=== PATIENT | female | born 1985 | race Caucasian/White ===

== ENCOUNTER 2018-06-20 17:21 | Emergency (ER) | payer OTHER ==
--- NOTE | 2018-06-20 17:52 | EDM.PDOC ---
ED HPI GENERAL MEDICAL PROBLEM - General Chief Complaint: Upper Extremity Injury/Pain Stated Complaint: LEFT ARM PAIN Time Seen by Provider: 06/20/18 17:48 Source of Information: Reports: Patient History Limitations: Reports: No Limitations - History of Present Illness INITIAL COMMENTS - FREE TEXT/NARRATIVE: HISTORY AND PHYSICAL: History of present illness: Patient is a 32-year-old female here with complaint of left elbow pain. She states it has been bothering her for the past week. She denies injury or trauma , thought she slept on it wrong but it has not gotten better. She is taking OTC tylenol and motrin without relief. She states the pain is worse when she bends the elbow. She denies shoulder or wrist pain and no distal numbness or tingling. She denies chest pain, SOB, or jaw pain. Denies significant past medical history. Review of systems: As per history of present illness and below otherwise all systems reviewed and negative. Past medical history: As per history of present illness and as reviewed below otherwise noncontributory. Surgical history: As per history of present illness and as reviewed below otherwise noncontributory. Social history: No reported history of drug or alcohol abuse. Family history: As per history of present illness and as reviewed below otherwise noncontributory. Physical exam: General: Patient sitting comfortably in no acute distress and nontoxic appearing HEENT: Atraumatic, normocephalic, pupils reactive, negative for conjunctival pallor or scleral icterus, mucous membranes moist, throat clear, neck supple, nontender, trachea midline. No meningeal signs. Lungs: Clear to auscultation, breath sounds equal bilaterally, chest nontender. Heart: S1S2, regular, negative for clicks, rubs, or overt murmur. Abdomen: Soft, nondistended, nontender. Negative for masses or hepatosplenomegaly. Negative for costovertebral tenderness. No rigidity, rebound , guarding. Pelvis: Stable nontender. Genitourinary: Deferred. Rectal: Deferred. Extremities: No obvious swelling or deformity of the left elbow. No warmth or erythema and skin is intact. Pain to palpation of the medial and posterior aspect of the elbow. Atraumatic, negative for cords or calf pain. Neurovascular unremarkable. Neuro: Awake, alert, oriented. Cranial nerves II through XII unremarkable. Cerebellum unremarkable. Motor and sensory unremarkable throughout. Exam nonfocal. Notes: Diagnostics: x-ray left elbow Therapeutics: None Prescriptions: Diclofenac Impression: Left elbow tendinitis Plan: 1. Take medication as instructed 2. Follow up with primary care provider 3. Return to ED as needed as discussed Definitive disposition and diagnosis as appropriate pending reevaluation and review of above. 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 ED EXAM, GENERAL - Physical Exam Exam: See Below (see dictation) Course - Vital Signs Last Recorded V/S: Last Vital Signs Temp 97.6 F 06/20/18 17:28 Pulse 87 06/20/18 17:28 Resp 18 06/20/18 17:28 BP 124/82 06/20/18 17:28 Pulse Ox 97 06/20/18 17:28 - Orders/Labs/Meds Orders: Active Orders 24 hr Category Date Time Status Elbow Min 3V Lt [CR] Stat Exams 06/20/18 17:46 Taken Departure - Departure Time of Disposition: 19:01 Disposition: Home, Self-Care 01 Condition: Good Clinical Impression: Elbow tendinitis - Discharge Information Prescriptions: Diclofenac Sodium [Voltaren] 75 mg PO BIDMEALS #30 tab.cr Referrals: PCP,None [Primary Care Provider] - Forms: ED Department Discharge Additional Instructions: The following information is given to patients seen in the emergency department who are being discharged to home. This information is to outline your options for follow-up care. We provide all patients seen in our emergency department with a follow-up referral. The need for follow-up, as well as the timing and circumstances, are variable depending upon the specifics of your emergency department visit. If you don't have a primary care physician on staff, we will provide you with a referral. We always advise you to contact your personal physician following an emergency department visit to inform them of the circumstance of the visit and for follow-up with them and/or the need for any referrals to a consulting specialist. The emergency department will also refer you to a specialist when appropriate. This referral assures that you have the opportunity for follow-up care with a specialist. All of these measure are taken in an effort to provide you with optimal care, which includes your follow-up. Under all circumstances we always encourage you to contact your private physician who remains a resource for coordinating your care. When calling for follow-up care, please make the office aware that this follow-up is from your recent emergency room visit. If for any reason you are refused follow-up, please contact the [facility] Emergency Department at and asked to speak to the emergency department charge nurse. [facility] [address] [place] [address] [id number] [facility] [address] [place] [id number] 1. Take medication as instructed 2. Follow up with primary care provider 3. Return to ED as needed as discussed - My Orders Last 24 Hours: My Active Orders 06/20/18 17:46 Elbow Min 3V Lt [CR] Stat - Assessment/Plan Last 24 Hours: My Active Orders 06/20/18 17:46 Elbow Min 3V Lt [CR] Stat
--- NOTE | 2018-06-20 19:02 | CR ---
INDICATION: Pain x2 days. No injury. Pt states she just woke up with pain one morning TECHNIQUE: Left elbow 2 views. COMPARISON: None. FINDINGS: Bones: Alignment is normal. No fractures or bone lesions. Joint spaces: Unremarkable. Soft tissues: Unremarkable. IMPRESSION: Unremarkable left elbow. Dictated by: Chai Garcia MD @ 06/20/2018 19:00:58 (Electronically Signed)
[2018-06-20 19:16] VITALS: BP 115/71
== END 2018-06-20 19:16 | disposition home or self-care (01) ==
LOC: MW.ED 17:21
DX: M77.9 Enthesopathy, unspecified (principal); F17.210 Nicotine dependence, cigarettes, uncomplicated; Z91.018 Allergy to other foods
CPT/HCPCS: 73080-26-LT; 73080-LT; 99282; 99283-25

== ENCOUNTER 2019-05-16 12:55 | Emergency (ER) | payer OTHER ==
[2019-05-16] MEDS ORDERED: Sodium Chloride 0.9% 1,000 ML IV ONE (15:28)
[2019-05-16] MEDS ORDERED: Ondansetron 4 MG/2 ML SDV IVPUSH ONE (15:29)
[2019-05-16] MEDS ORDERED: Ketorolac 30 MG/ML SDV IVPUSH ONE (15:29)
--- NOTE | 2019-05-16 15:42 | EDM.PDOC ---
ED HPI GENERAL MEDICAL PROBLEM - General Chief Complaint: ENT Problem Stated Complaint: flu symptoms/fever Time Seen by Provider: 05/16/19 14:54 Source of Information: Reports: Patient History Limitations: Reports: No Limitations - History of Present Illness INITIAL COMMENTS - FREE TEXT/NARRATIVE: HISTORY AND PHYSICAL: History of present illness: Patient is a 33-year-old female who presents to the ED today with concern of fever, generalized body aches, cough, headache, sore throat, back pain since (3 days). Patient states that she does have a history of kidney infections and states that the back pain does feel similar to when she is had kidney infections in the past. Patient states that she is also been vomiting and has not been able to keep down any fluids today. Patient denies any other health history or any other symptoms or concerns. Patient denies chest pain, shortness of breath. Denies neck stiff ness, change in vision, syncope, or near syncope. Denies abdominal pain, diarrhea, constipation, or dysuria. Has not noted any blood in urine or stool. Review of systems: As per history of present illness and below otherwise all systems reviewed and negative. Past medical history: As per history of present illness and as reviewed below otherwise noncontributory. Surgical history: As per history of present illness and as reviewed below otherwise noncontributory. Social history: See social history for further information Family history: As per history of present illness and as reviewed below otherwise noncontributory. Physical exam: General: Patient is alert, oriented, and in no acute distress. Patient sitting comfortably on exam table. HEENT: Atraumatic, normocephalic, pupils equal and reactive bilaterally, negative for conjunctival pallor or scleral icterus, mucous membranes moist, TMs normal bilaterally, throat clear, neck supple, nontender, trachea midline. No drooling or trismus noted. No meningeal signs. No hot potato voice noted. Lungs: Clear to auscultation, breath sounds equal bilaterally, chest nontender. Heart: S1S2, regular rate and rhythm without overt murmur Abdomen: Soft, nondistended, nontender. Negative for masses or hepatosplenomegaly. Positive for costovertebral tenderness bilaterally. Pelvis: Stable nontender. Genitourinary: Deferred. Rectal: Deferred. Skin: Intact, warm, dry. No lesions or rashes noted. Extremities: Atraumatic, negative for cords or calf pain. Neurovascular unremarkable. Neuro: Awake, alert, oriented. Cranial nerves II through XII unremarkable. Cerebellum unremarkable. Motor and sensory unremarkable throughout. Exam nonfocal. Notes: Patient is out of the treatment window with Tamiflu. Patient has not had any episodes of vomiting in the ED and has been able to drink fluids without vomiting. Discussed the importance for follow-up with a primary care provider. Voices understanding and is agreeable to plan of care. Denies any further questions or concerns at this time. Diagnostics: Influenza, Strep, CBC, CMP, UA, urine hCG, chest x-ray Therapeutics: NS, Zofran, Toradol Prescription: Zofran Impression: Influenza A Plan: 1. Take medication as prescribed. You can alternate ibuprofen and Tylenol as directed for pain and discomfort. 2. Follow-up with the primary care provider as discussed. Return to the ED as needed and as discussed. Definitive disposition and diagnosis as appropriate pending reevaluation and review of above. Body Pain Score (Numeric/FACES): 7 - Related Data Allergies Allergy/AdvReac Type Severity Reaction Status Date / Time cake Allergy Swelling Uncoded 05/16/19 14:06 cr Allergy Swelling Uncoded 05/16/19 14:06 Home Meds: Home Meds . 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 ED EXAM, GENERAL - Physical Exam Exam: See Below (see dictation) Course - Vital Signs Last Recorded V/S: Last Vital Signs Temp 101.2 F H 05/16/19 14:07 Pulse 91 05/16/19 16:33 Resp 20 05/16/19 16:33 BP 111/87 05/16/19 14:07 Pulse Ox 95 05/16/19 16:33 - Orders/Labs/Meds Orders: Active Orders 24 hr Category Date Time Status EKG Documentation Completion [RC] STAT Care 05/16/19 15:28 Active CULTURE STREP A CONFIRMATION [RM] Stat Lab 05/16/19 14:11 Results STREP SCRN A RAPID W CULT CONF [RM] Stat Lab 05/16/19 14:11 Results Labs: Laboratory Tests 05/16/19 05/16/19 05/16/19 Range/Units 16:20 16:20 17:00 WBC 5.90 (4.0-11.0) K/uL RBC 4.86 (4.30-5.90) M/uL Hgb 14.1 (12.0-16.0) g/dL Hct 42.0 (36.0-46.0) % MCV 86.4 (80.0-98.0) fL MCH 29.0 (27.0-32.0) pg MCHC 33.6 (31.0-37.0) g/dL RDW Std Deviation 48.6 (28.0-62.0) fl RDW Coeff of Arlene 15 (11.0-15.0) % Plt Count 227 (150-400) K/uL MPV 9.70 (7.40-12.00) fL Neut % (Auto) 72.0 (48.0-80.0) % Lymph % (Auto) 15.8 L (16.0-40.0) % [place] % (Auto) 11.5 (0.0-15.0) % Eos % (Auto) 0.5 (0.0-7.0) % Baso % (Auto) 0.2 (0.0-1.5) % Neut # (Auto) 4.3 (1.4-5.7) K/uL Lymph # (Auto) 0.9 (0.6-2.4) K/uL [place] # (Auto) 0.7 (0.0-0.8) K/uL Eos # (Auto) 0.0 (0.0-0.7) K/uL Baso # (Auto) 0.0 (0.0-0.1) K/uL Nucleated RBC % 0.0 /100WBC Nucleated RBCs # 0 K/uL Sodium 140 (136-145) mmol/L Potassium 4.0 (3.5-5.1) mmol/L Chloride 103 (98-107) mmol/L Carbon Dioxide 26.0 (21.0-32.0) mmol/L BUN 10 (7.0-18.0) mg/dL Creatinine 0.9 (0.6-1.0) mg/dL Est Cr Clr Drug Dosing 99.37 mL/min Estimated GFR (MDRD) > 60.0 ml/min Glucose 98 (74-106) mg/dL Calcium 8.8 (8.5-10.1) mg/dL Total Bilirubin 0.4 (0.2-1.0) mg/dL AST 20 (15-37) IU/L ALT 26 (14-63) IU/L Alkaline Phosphatase 70 (46-116) U/L Total Protein 7.8 (6.4-8.2) g/dL Albumin 3.9 (3.4-5.0) g/dL Globulin 3.9 (2.6-4.0) g/dL Albumin/Globulin Ratio 1.0 (0.9-1.6) Lipase 89 (73-393) U/L Urine Color YELLOW Urine Appearance SLT CLOUDY Urine pH 6.5 (5.0-8.0) Ur Specific [place] 1.015 (1.001-1.035) Urine Protein NEGATIVE (NEGATIVE) mg/dL Urine Glucose (UA) NEGATIVE (NEGATIVE) mg/dL Urine Ketones TRACE H (NEGATIVE) mg/dL Urine Occult Blood NEGATIVE (NEGATIVE) Urine Nitrite NEGATIVE (NEGATIVE) Urine Bilirubin NEGATIVE (NEGATIVE) Urine Urobilinogen 0.2 (<2.0) EU/dL Ur Leukocyte Esterase NEGATIVE (NEGATIVE) Urine HCG, Qual (NEGATIVE) 05/16/19 Range/Units 17:00 WBC (4.0-11.0) K/uL RBC (4.30-5.90) M/uL Hgb (12.0-16.0) g/dL Hct (36.0-46.0) % MCV (80.0-98.0) fL MCH (27.0-32.0) pg MCHC (31.0-37.0) g/dL RDW Std Deviation (28.0-62.0) fl RDW Coeff of Arlene (11.0-15.0) % Plt Count (150-400) K/uL MPV (7.40-12.00) fL Neut % (Auto) (48.0-80.0) % Lymph % (Auto) (16.0-40.0) % [place] % (Auto) (0.0-15.0) % Eos % (Auto) (0.0-7.0) % Baso % (Auto) (0.0-1.5) % Neut # (Auto) (1.4-5.7) K/uL Lymph # (Auto) (0.6-2.4) K/uL [place] # (Auto) (0.0-0.8) K/uL Eos # (Auto) (0.0-0.7) K/uL Baso # (Auto) (0.0-0.1) K/uL Nucleated RBC % /100WBC Nucleated RBCs # K/uL Sodium (136-145) mmol/L Potassium (3.5-5.1) mmol/L Chloride (98-107) mmol/L Carbon Dioxide (21.0-32.0) mmol/L BUN (7.0-18.0) mg/dL Creatinine (0.6-1.0) mg/dL Est Cr Clr Drug Dosing mL/min Estimated GFR (MDRD) ml/min Glucose (74-106) mg/dL Calcium (8.5-10.1) mg/dL Total Bilirubin (0.2-1.0) mg/dL AST (15-37) IU/L ALT (14-63) IU/L Alkaline Phosphatase (46-116) U/L Total Protein (6.4-8.2) g/dL Albumin (3.4-5.0) g/dL Globulin (2.6-4.0) g/dL Albumin/Globulin Ratio (0.9-1.6) Lipase (73-393) U/L Urine Color Urine Appearance Urine pH (5.0-8.0) Ur Specific [place] (1.001-1.035) Urine Protein (NEGATIVE) mg/dL Urine Glucose (UA) (NEGATIVE) mg/dL Urine Ketones (NEGATIVE) mg/dL Urine Occult Blood (NEGATIVE) Urine Nitrite (NEGATIVE) Urine Bilirubin (NEGATIVE) Urine Urobilinogen (<2.0) EU/dL Ur Leukocyte Esterase (NEGATIVE) Urine HCG, Qual NEGATIVE (NEGATIVE) Meds: Medications Discontinued Medications Generic Name Dose Route Start Last Admin Trade Name Torresq PRN Reason Stop Dose Admin Sodium Chloride 1,000 mls @ 999 mls/hr 05/16/19 15:28 05/16/19 16:16 Normal Saline IV 05/16/19 16:28 999 mls/hr BOLUS ONE Administration Ketorolac Tromethamine 30 mg 05/16/19 15:29 05/16/19 16:16 Toradol IVPUSH 05/16/19 15:30 30 mg ONETIME ONE Administration Ondansetron HCl 4 mg 05/16/19 15:29 05/16/19 16:17 Zofran IVPUSH 05/16/19 15:30 4 mg ONETIME ONE Administration Departure - Departure Time of Disposition: 17:40 Disposition: Home, Self-Care 01 Clinical Impression: Influenza A - Discharge Information Referrals: PCP,None [Primary Care Provider] - Forms: ED Department Discharge Additional Instructions: The following information is given to patients seen in the emergency department who are being discharged to home. This information is to outline your options for follow-up care. We provide all patients seen in our emergency department with a follow-up referral. The need for follow-up, as well as the timing and circumstances, are variable depending upon the specifics of your emergency department visit. If you don't have a primary care physician on staff, we will provide you with a referral. We always advise you to contact your personal physician following an emergency department visit to inform them of the circumstance of the visit and for follow-up with them and/or the need for any referrals to a consulting specialist. The emergency department will also refer you to a specialist when appropriate. This referral assures that you have the opportunity for follow-up care with a specialist. All of these measure are taken in an effort to provide you with optimal care, which includes your follow-up. Under all circumstances we always encourage you to contact your private physician who remains a resource for coordinating your care. When calling for follow-up care, please make the office aware that this follow-up is from your recent emergency room visit. If for any reason you are refused follow-up, please contact the [facility] Emergency Department at and asked to speak to the emergency department charge nurse. [facility] [address] [place] [address] [id number] 1. Take medication as prescribed. You can alternate ibuprofen and Tylenol as directed for pain and discomfort. 2. Follow-up with the primary care provider as discussed. Return to the ED as needed and as discussed. Sepsis Event Note - Evaluation Sepsis Screening Result: No Definite Risk - Focused Exam Vital Signs: Vital Signs Temp Pulse Resp BP Pulse Ox 05/16/19 16:33 91 20 95 05/16/19 14:07 101.2 F H 123 H 18 111/87 97 Date Exam was Performed: 05/16/19 Time Exam was Performed: 17:39 - My Orders Last 24 Hours: My Active Orders 05/16/19 14:11 CULTURE STREP A CONFIRMATION [RM] Stat STREP SCRN A RAPID W CULT CONF [RM] Stat 05/16/19 15:28 EKG Documentation Completion [RC] STAT - Assessment/Plan Last 24 Hours: My Active Orders 05/16/19 14:11 CULTURE STREP A CONFIRMATION [RM] Stat STREP SCRN A RAPID W CULT CONF [RM] Stat 05/16/19 15:28 EKG Documentation Completion [RC] STAT
--- NOTE | 2019-05-16 16:07 | CR ---
INDICATION: W/D, nausea, vomiting, chest pain and cough TECHNIQUE: Chest radiograph 2 views COMPARISON: 12/23/14 FINDINGS: Mediastinum: The mediastinum is normal in appearance. The heart silhouette is normal in size and morphology. Lung: Both lungs are unremarkable in appearance. No sign of pleural effusion seen. No pneumothorax is identified. Bone and Soft tissue: Unremarkable for age. IMPRESSION: 1. No acute cardiopulmonary disease is seen. Dictated by: Lane Padgett MD @ 05/16/2019 16:06:20 (Electronically Signed)
[2019-05-16 16:47] LABS: BLOOD UREA NITROGEN,BUN 10 mg/dL (7.0-18.0); CHLORIDE,CL 103 mmol/L (98-107); GLUCOSE RANDOM 98 mg/dL (74-106); LIPASE 89 U/L (73-393); SODIUM,NA 140 mmol/L (136-145)
[2019-05-16 18:02] VITALS: BP 115/58; PULSE 94
== END 2019-05-16 18:00 | disposition home or self-care (01) ==
LOC: MW.ED 12:55
DX: J10.1 Influenza due to other identified influenza virus with other respiratory manifestations (principal); F17.210 Nicotine dependence, cigarettes, uncomplicated; Z91.018 Allergy to other foods
CPT/HCPCS: 36415; 71046; 80053; 81003; 81025; 83690; 85025; 87081; 87804; 87880; 93005; 96361; 96374; 96375; 99284; J1885; J2405; J7030; 99283

== ENCOUNTER 2019-06-11 08:50 | Emergency (ER) | payer OTHER ==
[2019-06-11] MEDS ORDERED: Albuterol/Ipratropium 3.0-0.5 MG/3 ML Neb Soln NEB ONE ×2 (09:14→09:45)
--- NOTE | 2019-06-11 09:21 | EDM.PDOC ---
ED HPI GENERAL MEDICAL PROBLEM - General Chief Complaint: Respiratory Problem Stated Complaint: FLU Time Seen by Provider: 06/11/19 09:00 Source of Information: Reports: Patient History Limitations: Reports: No Limitations - History of Present Illness INITIAL COMMENTS - FREE TEXT/NARRATIVE: HISTORY OF PRESENT ILLNESS: Patient is a 33-year-old female who presents with cough. She states that she was diagnosed with influenza A on May 16 and since that time has had persistent cough. Cough is mostly dry with occasional clear sputum production. Denies any hemoptysis. Denies any fevers. Has slight body aches. Has episodes of posttussive emesis but no other abdominal pain or nausea. States she has had mild diarrhea for the past 2 weeks without blood. Denies any rash or neck stiffness. No retrosternal chest pain. Pt is a smoker, denies history of asthma. No recent travel. REVIEW OF SYSTEMS: Other than the symptoms associated with the present events, the following is reported with regard to recent health: General: (-) fever. HENT: (-) congestion. Respiratory: (+) cough. Cardiovascular: (-) chest pain. GI: (-) abdominal pain. : (-) urinary complaints. Musculoskeletal: (+) generalized myalgias Endocrine: (-) generalized weakness. Neurological: (-) localized weakness. Skin: (-) rash PAST MEDICAL HISTORY: reviewed as per nursing notes SOCIAL HISTORY: reviewed as per nursing notes, MEDICATIONS: Per nurse's note ALLERGIES: Per nurse's note, reviewed by me PHYSICAL EXAMINATION: GENERALIZED APPEARANCE: well developed, well nourished in no distress VITAL SIGNS: Per nurse's note, reviewed by me SKIN: Warm, dry; (-) cyanosis; (-) rash. HEAD: (-) scalp swelling, (-) tenderness. EYES: (-) conjunctival pallor, (-) scleral icterus. ENMT: (-) stridor; mucous membranes moist. NECK: (-) tenderness, (-) stiffness, CHEST AND RESPIRATORY: (-) rales, (-) rhonchi, (+)transient end expiratory wheezes; breath sounds equal bilaterally. HEART AND CARDIOVASCULAR: (-) irregularity; (-) murmur, (-) gallop. ABDOMEN AND GI: Soft; (-) tenderness, (-) guarding, (-) rebound, (-) palpable masses, EXTREMITIES: (-) deformity, (-) edema. NEURO AND PSYCH: Alert. Cranial nerves grossly intact; strength symmetric. gait steady DIAGNOSTICS: influenza: negative CXR as per radiologist report, reviewed by myself EMERGENCY DEPARTMENT COURSE AND TREATMENT: Patient's condition remained stable during Emergency Department evaluation. Based on my history, physical exam, and diagnostic evaluation, the patient appears to have symptoms consistent with bronchitis. There is a normal heart rate, normal oxygen saturation, a normal respiratory pattern and non-diagnostic exam. The patient appeared to be in no distress, appeared well-hydrated and was ambulating in the ED without difficulty. Discharge precautions were given with instructions to return if difficulty breathing, not tolerating oral food or fluids, any respiratory distress, or new symptoms. I encouraged follow-up with the primary care physician in 1-2 days for repeat exam. PLAN AND FOLLOW-UP: Patient received written and verbal instructions regarding this condition. Return to ED immediately with any new or worsening symptoms. Follow up to be arranged by patient with pcp in 1-2 days for further evaluation. Given discharge precautions. Patient expressed verbal understanding. 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: - Infectious Disease History Infectious Disease History: Reports: Chicken Pox, Influenza - Past Surgical History HEENT Surgical History: Reports: None Female Surgical History: Reports: D&C Social & Family History - Family History Family Medical History: Noncontributory - Tobacco Use Smoking Status *Q: Light Tobacco Smoker Years of Tobacco use: 20 Packs/Tins Daily: 0.2 - Caffeine Use Caffeine Use: Reports: Coffee - Recreational Drug Use Recreational Drug Use: No ED ROS GENERAL - Review of Systems Review Of Systems: See Below (see dictation) ED EXAM, GENERAL - Physical Exam Exam: See Below (see dictation) Course - Vital Signs Last Recorded V/S: Last Vital Signs Temp 97.8 F 06/11/19 10:12 Pulse 92 06/11/19 10:12 Resp 18 06/11/19 10:12 BP 123/66 06/11/19 10:12 Pulse Ox 99 06/11/19 10:12 - Orders/Labs/Meds Orders: Active Orders 24 hr Category Date Time Status RT Aerosol Therapy [RC] ASDIRECTED Care 06/11/19 09:15 Active RT Aerosol Therapy [RC] ASDIRECTED Care 06/11/19 09:45 Active Isolation [COMM] Routine Oth 06/11/19 09:15 Active Meds: Medications Discontinued Medications Generic Name Dose Route Start Last Admin Trade Name Freq PRN Reason Stop Dose Admin Albuterol/Ipratropium 3 ml 06/11/19 09:14 06/11/19 09:34 Duoneb 3.0-0.5 Mg/3 Ml NEB 06/11/19 09:15 3 ml ONETIME ONE Administration Albuterol/Ipratropium 3 ml 06/11/19 09:45 06/11/19 09:50 Duoneb 3.0-0.5 Mg/3 Ml NEB 06/11/19 09:46 3 ml ONETIME ONE Administration Departure - Departure Time of Disposition: 10:16 Disposition: Home, Self-Care 01 Condition: Good Clinical Impression: Bronchitis - Discharge Information *PRESCRIPTION DRUG MONITORING PROGRAM REVIEWED*: Not Applicable *COPY OF PRESCRIPTION DRUG MONITORING REPORT IN PATIENT MICHAEL: Not Applicable Prescriptions: Benzonatate [Tessalon Perle] 100 mg PO TID PRN #20 capsule PRN Reason: Cough predniSONE [Prednisone] 50 mg PO DAILY #5 tablet Instructions: Steps to Quit Smoking, [id number], Acute Bronchitis, Adult, [id number] Referrals: Merlin Lozada [Primary Care Provider] - 2 Days Forms: ED Department Discharge Additional Instructions: The following information is given to patients seen in the emergency department who are being discharged to home. This information is to outline your options for follow-up care. We provide all patients seen in our emergency department with a follow-up referral. The need for follow-up, as well as the timing and circumstances, are variable depending upon the specifics of your emergency department visit. If you don't have a primary care physician on staff, we will provide you with a referral. We always advise you to contact your personal physician following an emergency department visit to inform them of the circumstance of the visit and for follow-up with them and/or the need for any referrals to a consulting specialist. The emergency department will also refer you to a specialist when appropriate. This referral assures that you have the opportunity for follow-up care with a specialist. All of these measure are taken in an effort to provide you with optimal care, which includes your follow-up. Under all circumstances we always encourage you to contact your private physician who remains a resource for coordinating your care. When calling for follow-up care, please make the office aware that this follow-up is from your recent emergency room visit. If for any reason you are refused follow-up, please contact the [facility] Emergency Department at and asked to speak to the emergency department charge nurse. Sepsis Event Note - Evaluation Sepsis Screening Result: No Definite Risk - Focused Exam Vital Signs: Vital Signs Temp Pulse Resp BP Pulse Ox 06/11/19 10:12 97.8 F 92 18 123/66 99 06/11/19 09:39 97.1 F 85 18 117/67 97 06/11/19 09:00 97.9 F 83 18 132/78 97 Date Exam was Performed: 06/11/19 Time Exam was Performed: 10:23 - My Orders Last 24 Hours: My Active Orders 06/11/19 09:15 RT Aerosol Therapy [RC] ASDIRECTED Isolation [COMM] Routine 06/11/19 09:45 RT Aerosol Therapy [RC] ASDIRECTED - Assessment/Plan Last 24 Hours: My Active Orders 06/11/19 09:15 RT Aerosol Therapy [RC] ASDIRECTED Isolation [COMM] Routine 06/11/19 09:45 RT Aerosol Therapy [RC] ASDIRECTED
--- NOTE | 2019-06-11 09:58 | CR ---
Chest: 2 views of the chest were obtained. Comparison: Prior chest x-ray of 05/16/19. Heart size and mediastinum are normal. Lungs are clear with no acute parenchymal change. Bony structures are within normal limits for the patient's age. Impression: 1. Nothing acute is appreciated on 2 view chest x-ray. Diagnostic code #1 This report was dictated in MDT
[2019-06-11 10:13] VITALS: BP 123/66; PULSE 92
== END 2019-06-11 10:25 | disposition home or self-care (01) ==
LOC: MW.ED 08:50
DX: J40 Bronchitis, not specified as acute or chronic (principal); F17.210 Nicotine dependence, cigarettes, uncomplicated
CPT/HCPCS: 71046; 71046-26; 87804; 94640; 99283; 99284-25; J7620-GY

== ENCOUNTER 2019-08-29 01:21 | Emergency (ER) | payer OTHER ==
[2019-08-29 01:45] VITALS: BP 142/74; PULSE 86
[2019-08-29] MEDS ORDERED: Ibuprofen 400 MG Tab PO ONE (02:25)
[2019-08-29] MEDS ORDERED: Acetaminophen 500 MG Tab PO ONE (02:25)
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
== END 2019-08-29 03:27 | disposition home or self-care (01) ==
LOC: MW.ED 01:21
DX: M54.2 Cervicalgia (principal); F17.210 Nicotine dependence, cigarettes, uncomplicated; Z91.018 Allergy to other foods; Z91.09 Other allergy status, other than to drugs and biological substances; Y04.8XXA Assault by other bodily force, initial encounter
CPT/HCPCS: 99283; A9270; 99282

== ENCOUNTER 2020-09-29 09:39 | Emergency (ER) | payer OTHER ==
--- NOTE | 2020-09-29 10:16 | EDM.PDOC ---
ED HPI GENERAL MEDICAL PROBLEM - General Chief Complaint: Upper Extremity Injury/Pain Stated Complaint: L KNEE SWOLLEN Time Seen by Provider: 09/29/20 09:57 Source of Information: Reports: Patient History Limitations: Reports: No Limitations - History of Present Illness INITIAL COMMENTS - FREE TEXT/NARRATIVE: HISTORY AND PHYSICAL: History of present illness: The patient is a 35-year-old female who presents to the emergency department with complaints of left lower extremity swelling and pain which started yesterday. The patient states that she was just sitting in her chair yesterday and she started to have some warmth and pain in her left posterior calf and then started having some swelling in her left knee. She has pain at the distal upper thigh when bending her knee. She states that she was unable to sleep last night due to the pain and took some ibuprofen around 04 100 which did not help. She states that she has never had anything like this before. She has a history of varicose veins in the lower extremity. She will wear compression stockings at times, but not consistently. The patient reports that she awoke this morning with nausea but does not associate it with the left knee pain. She denies any fever, chills, headache, change in vision, syncope or near syncope. Denies any chest pain, back pain, shortness of breath or cough. Denies any abdominal pain, vomiting, diarrhea, constipation or dysuria. Has not noted any blood in urine or stool. Patient has been eating and drinking appropriately. In the emergency department the patient is hemodynamically stable with a blood pressure of 129/87 and a pulse of 88. The patient has a normal respiration rate of 18 and her SPO2 of 97%. She is afebrile with a temperature of 98. Review of systems: As per history of present illness and below otherwise all systems reviewed and negative. Past medical history: As per history of present illness and as reviewed below otherwise noncontributory. Surgical history: As per history of present illness and as reviewed below otherwise noncontributory. Social history: See social history for further information Family history: As per history of present illness and as reviewed below otherwise noncontributory. Physical exam: General: Well developed and well nourished. Alert and orientated x 3. Nontoxic in appearance and in no acute distress. Vital signs are stable and have been reviewed by me. Nursing notes were reviewed. HEENT: Atraumatic, normocephalic, pupils equal and reactive bilaterally, negative for conjunctival pallor or scleral icterus, mucous membranes moist, trachea midline. No drooling or trismus noted. No meningeal signs. No hot potato voice noted. Lungs: Clear to auscultation bilaterally. No wheezes, rales, or rhonchi. Chest nontender. Normal work of breathing, no accessory muscles used. Heart: S1S2, regular rate and rhythm without overt murmur, gallops, or rubs. No JVD. No peripheral edema Abdomen: Soft, nondistended, nontender. Normoactive bowel sounds. Negative for masses or costovertebral tenderness. Skin: Intact, warm, dry. No lesions or rashes noted. Hematologic: No petechiae or purpra. Mucosa appropriate color and normal nail bed color and refill. Extremities: Left lower extremity with mild swelling superior knee with tenderness. Left posterior calf with tenderness and mild swelling. Noted varicose veins upper inner thigh and posterior left knee and calf. No telangiectasia noted. Full ROM but with pain. Moves all other extremities per self without difficulty or deficits, negative for cords or calf pain. Neurovascular unremarkable. Neuro: Awake, alert, oriented. Cranial nerves II through XII unremarkable. Cerebellum unremarkable. Motor and sensory unremarkable throughout. Exam nonfocal. Psychiatric: Mood and affect are appropriate. Normal thought process. Answering questions appropriately. Notes: *This patient was seen and evaluated during the 2019 SARS-CoV-2 novel coronavirus pandemic period. Community viral transmission is ongoing at time of this encounter and the emergency department is operating under pandemic response procedures. As stated above the patient presents for complaints of swelling and pain in her left knee and posterior calf which started yesterday. The patient denies any shortness of breath chest pain and is not tachycardic. I will do an ultrasound to rule out a DVT and a left knee x-ray. The patient states the nausea came out of nowhere and she does use an IUD, Mirena, and is unsure of her last. The patient has requested a serum test. We will treat the patient's pain with Toradol 60 mg IM. The patient has declined anything for the nausea. 10:51 HCG negative. Patient informed of results. Left knee x-ray IMPRESSION: Minimal osteoarthritis within the patellofemoral joint. Superficial varicosities noted within the thigh and leg which may indicate underlying venous incompetence. Left lower extremity ultrasound IMPRESSION: No evidence of deep vein thrombosis within the left lower extremity. I have educated the patient on the x-ray and ultrasound findings. The patient is interested in a knee immobilizer as her leg feels better when it straight. I will instruct her she can take Motrin 600 3 times daily and follow-up with an orthopedic surgeon if her pain does not resolve after 5 days. The patient needs to follow-up with her primary care. I have talked with the patient about today's findings, in addition to providing specific details for plan of care. Reassessment at the time of disposition demonstrates that the patient is in no acute distress. The patient is stable for discharge, counseling was provided and we discussed in great detail signs and symptoms that would prompt them to return to the Emergency Department. Medication, follow up and supportive care measures were reviewed and discussed. Voices understanding and is agreeable to plan of care. Denies any further questions or concerns at this time. Diagnostics: US LLE, left knee x-ray, HCG Serum Therapeutics: Toradol 60 IM, Left knee immobilizer for joint stability and patient comfort to wear for 5 days. Impression: Varicose veins, left knee pain, left posterior calf pain Plan: 1. You were evaluated today on an emergent basis. Your complaints of left knee and left calf pain were evaluated with a knee x-ray and left lower leg ultrasound. Your left knee x-ray IMPRESSION: Minimal osteoarthritis within the patellofemoral joint. Superficial varicosities noted within the thigh and leg which may indicate underlying venous incompetence. And your left lower extremity ultrasound was normal. We will put you in a knee immobilizer for 5 days. I will have you take Motrin 600 mg 3 times a day. You need to follow-up with an orthopedic surgeon for possible MRI. You also need to follow-up with your primary care provider for a baseline due to your varicose veins in calf pain. 2. You can alternate Tylenol and ibuprofen as needed for pain and fever management. 3. We encourage you to follow up with your primary care provider and/or recommended specialist in the next few days for re-evaluation and further care/management. 4. If your symptoms should worsen, new symptoms develop or any of the signs and symptoms we discussed should arise please return to the emergency room or call 911 (if needed). Definitive disposition and diagnosis as appropriate pending reevaluation and review of above. left knee Pain Score (Numeric/FACES): 5 - Related Data Allergies Allergy/AdvReac Type Severity Reaction Status Date / Time cake Allergy Swelling Uncoded 08/29/19 01:46 cr Allergy Swelling Uncoded 08/29/19 01:46 Home Meds: Home Meds . [No Known Home Meds] 08/29/19 [History] Past Medical History - Past Health History Medical/Surgical History: Denies Medical/Surgical History HEENT History: Reports: Impaired Vision, Other (See Below) Other HEENT History: wears glasses Genitourinary History: Reports: None [employer] History: Reports: - Infectious Disease History Infectious Disease History: Reports: Chicken Pox, Influenza - Past Surgical History HEENT Surgical History: Reports: None Female Surgical History: Reports: D&C Social & Family History - Family History Family Medical History: No Pertinent Family History - Caffeine Use Caffeine Use: Reports: Coffee Review of Systems - Review of Systems Review Of Systems: Comprehensive ROS is negative, except as noted in HPI. ED EXAM, GENERAL - Physical Exam Exam: See Below (See dictation) Course - Vital Signs Last Recorded V/S: Last Vital Signs Temp 98.0 F 09/29/20 09:50 Pulse 77 09/29/20 12:41 Resp 18 09/29/20 12:41 BP 118/70 09/29/20 12:41 Pulse Ox 97 09/29/20 12:41 - Orders/Labs/Meds Orders: Active Orders 24 hr Category Date Time Status DME for Discharge [COMM] Stat Oth 09/29/20 12:09 Ordered Labs: Laboratory Tests 09/29/20 Range/Units 10:25 HCG, Qual NEGATIVE (NEG) Meds: Medications Discontinued Medications Generic Name Dose Route Start Last Admin Trade Name Freq PRN Reason Stop Dose Admin Ketorolac Tromethamine 60 mg 09/29/20 10:24 09/29/20 10:29 Ketorolac 60 Mg/2 Ml Sdv IM 09/29/20 10:25 60 mg ONETIME ONE Administration Departure - Departure Time of Disposition: 12:14 Disposition: Home, Self-Care 01 Condition: Good Clinical Impression: Pain of left calf, Varicose veins Knee pain, acute Qualifiers: Laterality: left Qualified Code(s): M25.562 - Pain in left knee - Discharge Information *PRESCRIPTION DRUG MONITORING PROGRAM REVIEWED*: Not Applicable *COPY OF PRESCRIPTION DRUG MONITORING REPORT IN PATIENT MICHAEL: Not Applicable Instructions: Acute Knee Pain, Adult, Varicose Veins Referrals: Latoya Tan MD [Primary Care Provider] - Forms: ED Department Discharge Additional Instructions: The following information is given to patients seen in the emergency department who are being discharged to home. This information is to outline your options for follow-up care. We provide all patients seen in our emergency department with a follow-up referral. The need for follow-up, as well as the timing and circumstances, are variable depending upon the specifics of your emergency department visit. If you don't have a primary care physician on staff, we will provide you with a referral. We always advise you to contact your personal physician following an emergency department visit to inform them of the circumstance of the visit and for follow-up with them and/or the need for any referrals to a consulting specialist. The emergency department will also refer you to a specialist when appropriate. This referral assures that you have the opportunity for follow-up care with a specialist. All of these measure are taken in an effort to provide you with optimal care, which includes your follow-up. Under all circumstances we always encourage you to contact your private physician who remains a resource for coordinating your care. When calling for follow-up care, please make the office aware that this follow-up is from your recent emergency room visit. If for any reason you are refused follow-up, please contact the [facility] Emergency Department at and asked to speak to the emergency department charge nurse. [facility] [address] [place] [id number] [facility] [address] [place] [id number] [facility] Professional Building [address] [facility], [address] [place] [address] [facility] [address] [place] [address] Plan: 1. You were evaluated today on an emergent basis. Your complaints of left knee and left calf pain were evaluated with a knee x-ray and left lower leg ultrasound. Your left knee x-ray IMPRESSION: Minimal osteoarthritis within the patellofemoral joint. Superficial varicosities noted within the thigh and leg which may indicate underlying venous incompetence. And your left lower extremity ultrasound was normal. We will put you in a knee immobilizer for 5 days. I will have you take Motrin 600 mg 3 times a day. You need to follow-up with an orthopedic surgeon for possible MRI. You also need to follow-up with your primary care provider for a baseline due to your varicose veins in calf pain. 2. You can alternate Tylenol and ibuprofen as needed for pain and fever management. 3. We encourage you to follow up with your primary care provider and/or recommended specialist in the next few days for re-evaluation and further care/management. 4. If your symptoms should worsen, new symptoms develop or any of the signs and symptoms we discussed should arise please return to the emergency room or call 911 (if needed). Sepsis Event Note (ED) - Evaluation Sepsis Screening Result: No Definite Risk - Focused Exam Vital Signs: Vital Signs Temp Pulse Resp BP Pulse Ox 09/29/20 12:41 77 18 118/70 97 09/29/20 11:41 69 18 106/60 97 09/29/20 09:50 98.0 F 88 18 129/87 98 - My Orders Last 24 Hours: My Active Orders 09/29/20 12:09 DME for Discharge [COMM] Stat - Assessment/Plan Last 24 Hours: My Active Orders 09/29/20 12:09 DME for Discharge [COMM] Stat
[2020-09-29] MEDS ORDERED: Ketorolac 60 MG/2 ML SDV IM ONE (10:24)
--- NOTE | 2020-09-29 10:54 | CR ---
INDICATION: Pain and swelling COMPARISON: none TECHNIQUE: Three-view left knee. FINDINGS: The bones are anatomically aligned. There is no evidence of fracture, erosion or intrinsic bone lesion. There is slight joint space narrowing and minimal hypertrophic spurring within the patellofemoral joint. Superficial varicosities are noted within the leg and medial thigh. IMPRESSION: Minimal osteoarthritis within the patellofemoral joint. Superficial varicosities noted within the thigh and leg which may indicate underlying venous incompetence. Dictated by Esau Ayala MD @ 09/29/2020 10:53:[address] Esau Ayala @ Sep 29 2020 10:53AM
--- NOTE | 2020-09-29 12:03 | US ---
INDICATION: Left leg pain and swelling TECHNIQUE: A compression venous ultrasound exam was performed of the left lower extremity using 2D sterling-scale imaging, color Doppler and spectral Doppler analysis. FINDINGS: Sonographic imaging of the left lower extremity demonstrates normal compressibility and color Doppler venous blood flow within the common femoral vein, deep femoral vein, and the proximal greater saphenous vein. Within the thigh, the femoral and popliteal veins are patent and compressible and demonstrate normal response to Valsalva. At a lower level, the peroneal and anterior tibial veins also show normal compressibility and color Doppler venous blood flow. IMPRESSION: No evidence of deep vein thrombosis within the left lower extremity. Dictated by Esau Ayala MD @ 09/29/2020 12:02:[address] Esau Ayala @ Sep 29 2020 12:02PM
[2020-09-29 12:45] VITALS: BP 118/70; PULSE 77
== END 2020-09-29 12:46 | disposition home or self-care (01) ==
LOC: MW.ED 09:39
DX: I83.812 Varicose veins of left lower extremity with pain (principal); Z91.048 Other nonmedicinal substance allergy status
CPT/HCPCS: 36415; 73562; 84703; 93971; 96372; 99284; J1885

== ENCOUNTER 2021-12-08 18:51 | Emergency (ER) | payer OTHER ==
[2021-12-08] MEDS ORDERED: Acetaminophen 500 MG Tab PO ONE ×2 (19:11→19:26)
[2021-12-08 20:37] VITALS: BP 110/64; PULSE 69
== END 2021-12-08 20:30 | disposition home or self-care (01) ==
LOC: MW.ED 18:51
DX: S00.83XA Contusion of other part of head, initial encounter (principal); Z91.018 Allergy to other foods; Y04.0XXA Assault by unarmed brawl or fight, initial encounter
CPT/HCPCS: 70450; 70486; 99284; A9270

== ENCOUNTER 2022-02-13 10:19 | Emergency (ER) | payer SELFPAY ==
[2022-02-13 10:29] VITALS: PULSE 88
[2022-02-13] MEDS ORDERED: Ketorolac 30 MG/ML SDV IVPUSH ONE (10:36)
[2022-02-13 12:05] LABS: POTASSIUM,K 3.9 mmol/L (3.5-5.1)
[2022-02-13 12:06] VITALS: BP 122/67
[2022-02-13] MEDS ORDERED: Acetaminophen/oxyCODONE 325-10 MG Tab PO ONE (13:02)
== END 2022-02-13 14:00 | disposition home or self-care (01) ==
LOC: MW.ED 10:19
DX: M94.0 Chondrocostal junction syndrome [Tietze] (principal); I83.92 Asymptomatic varicose veins of left lower extremity; Z91.018 Allergy to other foods
CPT/HCPCS: 36415; 71045; 80053; 84484; 84703; 85025; 85379; 87635; 93005; 93971; 96374; 99285; A9270; J1885; U0002

== ENCOUNTER 2022-10-23 13:25 | Emergency (ER) | payer SELFPAY ==
[2022-10-23 13:55] LABS: BASOPHILS PERCENT AUTO 0.3 % (0.0-1.5); EOSINOPHILS ABSOLUTE AUTO 0.1 K/uL (0.0-0.7); EOSINOPHILS PERCENT AUTO 1.8 % (0.0-7.0); HEMATOCRIT 44.2 % (36.0-46.0); HEMOGLOBIN 14.9 g/dL (12.0-16.0); LYMPHOCYTES ABSOLUTE AUTO 2.8 K/uL (0.6-2.4); LYMPHOCYTES PERCENT AUTO 38.5 % (16.0-40.0); MEAN CORPUSCULAR HEMOGLOBIN 30.2 pg (27.0-32.0); MEAN CORPUSCULAR HGB CONC 33.7 g/dL (31.0-37.0); MEAN CORPUSCULAR VOLUME 89.7 fL (80.0-98.0); MONOCYTES ABSOLUTE AUTO 0.4 K/uL (0.0-0.8); NEUTROPHILS ABSOLUTE AUTO 3.9 K/uL (1.4-5.7); NEUTROPHILS PERCENT AUTO 53.4 % (48.0-80.0); NRBC ABSOLUTE 0 K/uL; PLATELET COUNT,PLT 324 K/uL (150-400); RED BLOOD CELL COUNT 4.93 M/uL (4.30-5.90); WHITE BLOOD CELL COUNT,WBC 7.29 K/uL (4.0-11.0)
[2022-10-23 14:24] LABS: BILIRUBIN TOTAL 0.3 mg/dL (0.2-1.0); CALCIUM 9.2 mg/dL (8.5-10.1); CARBON DIOXIDE,CO2 27.5 mmol/L (21.0-32.0); CREATININE 0.9 mg/dL (0.6-1.0); EST CRCL DRUG DOSING (CG) 92.55 mL/min; MAGNESIUM 1.9 mg/dL (1.8-2.4)
[2022-10-23] MEDS ORDERED: LORazepam 2 MG/ML SDV IVPUSH ONE (14:49)
[2022-10-23 15:43] VITALS: BP 113/65; PULSE 67
== END 2022-10-23 16:14 | disposition home or self-care (01) ==
LOC: MW.ED 13:25
DX: R42 Dizziness and giddiness (principal); R20.0 Anesthesia of skin; R07.9 Chest pain, unspecified; F17.210 Nicotine dependence, cigarettes, uncomplicated; Z91.018 Allergy to other foods
CPT/HCPCS: 36415; 80053; 83735; 84484; 85025; 93005; 93010; 99283; 99285

== ENCOUNTER 2022-11-08 19:32 | Emergency (ER) | payer SELFPAY ==
[2022-11-08] MEDS ORDERED: Lidocaine 1% 5 ML VIAL INJECT ONE (20:02)
[2022-11-08] MEDS ORDERED: Bacitracin Oint 1 GM U/D Packet TOP STA (20:26)
[2022-11-08 20:50] VITALS: BP 130/80; PULSE 91
== END 2022-11-08 20:51 | disposition home or self-care (01) ==
LOC: MW.ED 19:32 → EEVIPCON 19:32 → MW.ED 20:51
DX: L73.2 Hidradenitis suppurativa (principal); Z91.018 Allergy to other foods
CPT/HCPCS: 10060; 87070; 87077; 87186; 87205; 99283; J3490

== ENCOUNTER 2023-01-04 11:54 | Emergency (ER) | payer SELFPAY ==
[2023-01-04] MEDS ORDERED: Sodium Chloride 0.9% 1,000 ML IV ONE (12:08)
[2023-01-04] MEDS ORDERED: Sodium Chloride 0.9% 2.5 ML Syringe FLUSH PRN (12:09)
[2023-01-04] MEDS ORDERED: Ondansetron 4 MG/2 ML SDV IVPUSH ONE (12:09)
[2023-01-04] MEDS ORDERED: Morphine 4 MG/ML Syringe IVPUSH ONE (12:09)
[2023-01-04] MEDS ORDERED: Sodium Chloride 0.9% 10 ML Syringe FLUSH PRN (12:09)
[2023-01-04 13:03] LABS: BASOPHILS ABSOLUTE AUTO 0.03 K/uL (0.00-0.20); BASOPHILS PERCENT AUTO 0.3 % (0.0-1.0); EOSINOPHILS ABSOLUTE AUTO 0.12 K/uL (0.00-0.45); EOSINOPHILS PERCENT AUTO 1.2 % (0.0-6.0); HEMATOCRIT 42.6 % (37.0-47.0); HEMOGLOBIN 14.5 g/dL (12.0-16.0); LYMPHOCYTES ABSOLUTE AUTO 2.05 K/uL (1.00-4.80); LYMPHOCYTES PERCENT AUTO 20.7 % (24.0-44.0); MEAN CORPUSCULAR HEMOGLOBIN 30.7 pg (28.0-32.0); MEAN CORPUSCULAR VOLUME 90.1 fL (83.0-99.0); MONOCYTES ABSOLUTE AUTO 0.47 K/uL (0.00-0.80); MONOCYTES PERCENT AUTO 4.7 % (0.0-8.0); NEUTROPHILS ABSOLUTE AUTO 7.2 K/uL (1.8-7.7); NEUTROPHILS PERCENT AUTO 72.8 % (41.0-71.0); PLATELET COUNT,PLT 321 K/uL (150-400); RED BLOOD CELL COUNT 4.73 M/uL (4.10-5.30)
[2023-01-04 13:36] LABS: ALANINE AMINOTRANSFERASE,ALT 25 IU/L (14-63); ALBUMIN 3.8 g/dL (3.4-5.0); ALKALINE PHOSPHATASE 65 U/L (46-116); ASPARTATE AMNIOTRANSFERASE,AST 15 IU/L (15-37); BILIRUBIN TOTAL 0.3 mg/dL (0.2-1.0); BLOOD UREA NITROGEN,BUN 7 mg/dL (7.0-18.0); CALCIUM 8.8 mg/dL (8.5-10.1); CARBON DIOXIDE,CO2 27.5 mmol/L (21.0-32.0); CHLORIDE,CL 104 mmol/L (98-107); CREATININE 0.7 mg/dL (0.6-1.0); GLUCOSE RANDOM 102 mg/dL (74-106); POTASSIUM,K 4.5 mmol/L (3.5-5.1); PROTEIN TOTAL,TP 7.6 g/dL (6.4-8.2); SODIUM,NA 138 mmol/L (136-145)
[2023-01-04 13:37] LABS: ESTIMATED GFR 114 mL/min (>60)
[2023-01-04] MEDS ORDERED: Iopamidol 755 MG/ML 500 ML Multipack Bottle IVPUSH STA (15:08)
[2023-01-04 16:05] VITALS: BP 107/68; PULSE 63
== END 2023-01-04 16:17 | disposition home or self-care (01) ==
LOC: MW.ED 11:54
DX: I47.10 Supraventricular tachycardia, unspecified (principal); Z91.09 Other allergy status, other than to drugs and biological substances
CPT/HCPCS: 36415; 71275; 80053; 83880; 84484; 84703; 85025; 85379; 93005; 96361; 96374; 96375; 99285; J2270; J2405; J3490; J7030; Q9967; 93010; 99284

== ENCOUNTER 2023-12-26 19:17 | Emergency (ER) | payer SELFPAY ==
[2023-12-26] MEDS: Aspirin 81 MG Tab.Chew PO STA (19:36)
[2023-12-26] MEDS: Sodium Chloride 0.9% 10 ML Syringe FLUSH PRN (19:37)
[2023-12-26] MEDS: Sodium Chloride 0.9% 2.5 ML Syringe FLUSH PRN (19:37)
[2023-12-26 19:38] LABS: BASOPHILS ABSOLUTE AUTO 0.04 K/uL (0.00-0.20); BASOPHILS PERCENT AUTO 0.4 % (0.0-1.0); EOSINOPHILS ABSOLUTE AUTO 0.16 K/uL (0.00-0.45); EOSINOPHILS PERCENT AUTO 1.7 % (0.0-6.0); HEMATOCRIT 42.3 % (37.0-47.0); HEMOGLOBIN 14.7 g/dL (12.0-16.0); IMMATURE GRAN ABSOLUTE AUTO 0.03 K/uL (0.00-0.05); IMMATURE GRAN PERCENT AUTO 0.3 % (0.0-0.4); LYMPHOCYTES ABSOLUTE AUTO 3.39 K/uL (1.00-4.80); LYMPHOCYTES PERCENT AUTO 35.1 % (24.0-44.0); MEAN CORPUSCULAR HEMOGLOBIN 30.7 pg (28.0-32.0); MEAN CORPUSCULAR HGB CONC 34.8 g/dL (32.0-36.0); MEAN CORPUSCULAR VOLUME 88.3 fL (83.0-99.0); MEAN PLATELET VOLUME 9.3 fL (9.4-12.3); MONOCYTES PERCENT AUTO 6.2 % (0.0-8.0); NEUTROPHILS ABSOLUTE AUTO 5.45 K/uL (1.80-7.70); NEUTROPHILS PERCENT AUTO 56.3 % (41.0-71.0); PLATELET COUNT,PLT 293 K/uL (150-400); RED BLOOD CELL COUNT 4.79 M/uL (4.10-5.30); WHITE BLOOD CELL COUNT,WBC 9.67 K/uL (3.9-11.3)
[2023-12-26 20:02] LABS: A/G RATIO 1.2 (0.9-1.6); ALBUMIN 4.1 g/dL (3.4-5.0); BILIRUBIN TOTAL 0.5 mg/dL (0.2-1.0); CALCIUM 9.6 mg/dL (8.5-10.1); CARBON DIOXIDE,CO2 27.9 mmol/L (21.0-32.0); EST CRCL DRUG DOSING (CG) 85.26 mL/min; POTASSIUM,K 3.7 mmol/L (3.5-5.1); PROTEIN TOTAL,TP 7.5 g/dL (6.4-8.2)
[2023-12-27 00:13] VITALS: BP 129/67; PULSE 70
== END 2023-12-26 21:40 | disposition home or self-care (01) ==
LOC: MW.ED 19:17
DX: R07.9 Chest pain, unspecified (principal); Z91.018 Allergy to other foods; Z88.9 Allergy status to unspecified drugs, medicaments and biological substances; Z75.8 Other problems related to medical facilities and other health care
CPT/HCPCS: 36415; 71046; 80053; 83690; 84484; 84703; 85025; 93005; 99285; A9270; J3490

== ENCOUNTER 2025-01-20 00:02 | Emergency (ER) | payer BC ==
[2025-01-20 01:16] LABS: BASOPHILS ABSOLUTE AUTO 0.05 K/uL (0.00-0.20); BASOPHILS PERCENT AUTO 0.5 % (0.0-1.0); EOSINOPHILS ABSOLUTE AUTO 0.23 K/uL (0.00-0.45); EOSINOPHILS PERCENT AUTO 2.4 % (0.0-6.0); IMMATURE GRAN ABSOLUTE AUTO 0.02 K/uL (0.00-0.05); IMMATURE GRAN PERCENT AUTO 0.2 % (0.0-0.4); LYMPHOCYTES ABSOLUTE AUTO 3.55 K/uL (1.00-4.80); LYMPHOCYTES PERCENT AUTO 36.4 % (24.0-44.0); MEAN PLATELET VOLUME 9.3 fL (9.4-12.3); MONOCYTES ABSOLUTE AUTO 0.63 K/uL (0.00-0.80); MONOCYTES PERCENT AUTO 6.5 % (0.0-8.0); NEUTROPHILS ABSOLUTE AUTO 5.26 K/uL (1.80-7.70); NEUTROPHILS PERCENT AUTO 54.0 % (41.0-71.0); NRBC ABSOLUTE 0.00 K/uL (0.00-0.02); NRBC PERCENT 0.0 /100WBC (0.0-0.2); PLATELET COUNT,PLT 305 K/uL (150-400); RED BLOOD CELL COUNT 4.68 M/uL (4.10-5.30); WHITE BLOOD CELL COUNT,WBC 9.74 K/uL (3.9-11.3)
[2025-01-20 01:42] LABS: A/G RATIO 1.0 (0.9-1.6); ALANINE AMINOTRANSFERASE,ALT 25.0 IU/L (14-63); ASPARTATE AMNIOTRANSFERASE,AST 17.0 IU/L (15-37); BILIRUBIN TOTAL 0.2 mg/dL (0.2-1.0); BLOOD UREA NITROGEN,BUN 10.0 mg/dL (7.0-18.0); CARBON DIOXIDE,CO2 29.7 mmol/L (21.0-32.0); CHLORIDE,CL 104.0 mmol/L (98-107); CREATININE 0.8 mg/dL (0.6-1.0); EST CRCL DRUG DOSING (CG) 102.1 mL/min; GLUCOSE RANDOM 113.0 mg/dL (74-106); POTASSIUM,K 3.7 mmol/L (3.5-5.1); PROTEIN TOTAL,TP 7.4 g/dL (6.4-8.2); SODIUM,NA 137.0 mmol/L (136-145)
[2025-01-20 01:46] LABS: ESTIMATED GFR 96.0 mL/min (>60)
[2025-01-20] MEDS: Iopamidol 755 MG/ML 500 ML Multipack Bottle IVPUSH STA (03:43)
[2025-01-20 03:52] VITALS: BP 122/62; PULSE 74
== END 2025-01-20 04:11 | disposition home or self-care (01) ==
LOC: MW.ED 00:02
DX: J06.9 Acute upper respiratory infection, unspecified (principal); Z75.3 Unavailability and inaccessibility of health-care facilities; Z79.899 Other long term (current) drug therapy; Z88.8 Allergy status to other drugs, medicaments and biological substances; Z91.018 Allergy to other foods
CPT/HCPCS: 36415; 71046; 71275; 80053; 83735; 84484; 85025; 85379; 87428; 93005; 99285; Q9967; 93010; 99283